=== PATIENT | female | born 1980 ===

== ENCOUNTER 2021-12-12 14:37 | Emergency (ER) | payer BC ==
[~2021-12-12] VITALS: Ht 162.6 cm; Wt 65.8 kg
--- NOTE | 2021-12-12 14:40 | NUR ---
Dr Arredondo at bedside for MSE.
[2021-12-12] MEDS ORDERED: ONDANSETRON 4 MG/2 ML VIAL IV ONE (14:45)
[2021-12-12] MEDS ORDERED: IV NORMAL SALINE 1000 ML BAG IV ONE (14:45)
[2021-12-12] MEDS ORDERED: LIDOCAINE VISCUS 2% 15 ML UDC ONE (14:52)
[2021-12-12] MEDS ORDERED: ONDANSETRON 4 MG/2 ML VIAL ONE (14:52)
[2021-12-12] MEDS ORDERED: KETOROLAC TROMETHAMINE 15 MG INJ ONE ×2 (14:53→17:27)
[2021-12-12] MEDS ORDERED: MAG HYDROX/AL HYDROX/SIMETH 30 ML LIQUID UDC ONE (14:53)
[2021-12-12] MEDS ORDERED: MAG HYDROX/AL HYDROX/SIMETH 30 ML LIQUID UDC PO ONE (15:00)
[2021-12-12] MEDS ORDERED: LIDOCAINE VISCUS 2% 15 ML UDC MM ONE (15:00)
[2021-12-12] MEDS ORDERED: KETOROLAC TROMETHAMINE 15 MG INJ IVP ONE ×2 (15:00→17:30)
[2021-12-12] MEDS ORDERED: ACETAMINOPHEN 325 MG TABLET PO ONE (15:00)
--- NOTE | 2021-12-12 15:06 | NUR ---
Pt refusing PO GI cocktail at this time due to nausea/vomiting. Zofran IV already given. Pending preg test for Toradol. MD ordered tylenol while waiting but pt refusing oral intake.
[2021-12-12 15:07] LABS: HEMATOCRIT 43.9 % (31.2-41.9); MEAN CORPUSCULAR HEMOGLOBIN 28.6 uug (24.7-32.8); PLATELET COUNT (AUTO) 384 K/uL (179-408)
[2021-12-12 15:12] LABS: CREATININE 0.9 mg/dL (0.6-1.3); POTASSIUM 3.6 mmol/L (3.5-5.1)
[2021-12-12 15:19] LABS: BILIRUBIN,TOTAL 0.4 mg/dL (0.2-1.0); TOTAL PROTEIN, SERUM 8.3 g/dL (6.4-8.2)
[2021-12-12] MEDS ORDERED: HALOPERIDOL LACTATE 5 MG/1 ML VIAL ONE (15:24)
[2021-12-12] MEDS ORDERED: HALOPERIDOL LACTATE 5 MG/1 ML VIAL IM ONE (15:30)
--- NOTE | 2021-12-12 15:44 | NUR ---
Attempted to get CT contrast consent. Pt had a recent test done, notified ER ,
[2021-12-12] MEDS ORDERED: METOCLOPRAMIDE HCL 10 MG/2 ML VIAL ONE (17:27)
[2021-12-12] MEDS ORDERED: ONDA4TAB5 PO (17:28)
[2021-12-12] MEDS ORDERED: METOCLOPRAMIDE HCL 10 MG/2 ML VIAL IV ONE (17:30)
[2021-12-12 17:41] VITALS: BP 123/70
--- NOTE | 2021-12-12 17:42 | NUR ---
Pt's and patient s/w MD. At this time, pt feeling better and they want to take her to their usual hospital. MD s/w patient and discussed risks of leaving against medical advise.Patient given information related to possible complications, up to and including , which could occur as a result of leaving the hospital at this time. Patient/and her family verbalizes understanding of risks involved due to leaving against medical advice. Patient has signed AMA form. Notified CT that pt refused. Pt left ED in steady gait.
== END 2021-12-12 17:41 | disposition left against medical advice (07) ==
LOC: ER 14:41
DX: R10.33 Periumbilical pain (principal); R11.2 Nausea with vomiting, unspecified; Z53.29 Procedure and treatment not carried out because of patient's decision for other reasons; Z88.5 Allergy status to narcotic agent; Z87.19 Personal history of other diseases of the digestive system; K83.8 Other specified diseases of biliary tract
CPT/HCPCS: 99285; 96374; 76705; 96375; 96361; 80053; 83690; 85025; 84484; 84702; 36415; 93005; 83605; 96372; J1630; J1885 ×2; J2765; J2405; A4663